=== PATIENT | male | born 1965 | race Caucasian/White ===

== ENCOUNTER → 2020-05-07 | Outpatient (CLI) | payer BC ==
[~2020-05-07] MED LIST: EPIN.3I IM; LORTAB 5-325 M1 EACH PO
== END | disposition home or self-care (01) ==
LOC: LAB 07:48 → LAB SHORT 07:48
DX: D22.4 Melanocytic nevi of scalp and neck (principal); D36.10 Benign neoplasm of peripheral nerves and autonomic nervous system, unspecified
CPT/HCPCS: 88305

== ENCOUNTER 2023-07-17 14:05 | Emergency (ER) | payer BC ==
[~2023-07-17] VITALS: Ht 182.9 cm; Wt 90.7 kg
[2023-07-17 14:17] VITALS: BP 116/86
== END 2023-07-17 15:23 | disposition home or self-care (01) ==
LOC: ER 14:05
DX: M25.562 Pain in left knee (principal); Z91.030 Bee allergy status; X50.1XXA Overexertion from prolonged static or awkward postures, initial encounter; Y93.53 Activity, golf
CPT/HCPCS: 29505; 99283-25